=== PATIENT | female | born 1960 | race Caucasian/White ===

== ENCOUNTER 2021-10-03 22:41 | Emergency (ER) | payer OTHER ==
[2021-10-04] MEDS ORDERED: Promethazine HCl 25 MG/ML VIAL ONE (00:24)
[2021-10-04] MEDS ORDERED: Morphine 4 MG/ML VIAL ONE (00:24)
[2021-10-04 00:38] LABS: #Eosinphils 0.2 10x3/uL (0.0-0.5); #Monocytes 0.8 10x3/uL (0.0-1.1); #Neutrophils 5.3 10x3/uL (1.5-8.4); %Basophils 0.4 % (0.0-2.0); %Eosinophils 1.8 % (0.0-6.0); %Lymphocytes 29.2 % (18.0-47.0); %Neutrophils 59.3 % (40.0-75.0); Hemoglobin 14.2 g/dL (12.0-15.5); Mean Corpuscular HGB CONC 33.2 g/dL (32.0-36.0); Mean Corpuscular Volume 96.4 fl (81.6-98.3); Mean Platelet Volume 9.9 fl (7.4-10.4); Platelet Count 268 10x3/uL (150-450); RBC Distribution Width 12.9 % (11.5-14.5); Red Blood Cell (RBC) Count 4.44 10x6/uL (3.90-5.03)
[2021-10-04 00:39] LABS: Anion Gap 18 mmol/L (10-20); BUN (Urea Nitrogen) 19 mg/dL (9.8-20.1); Calc. Creatinine Clearance 0 mL/min (70-130); Calcium 9.9 mg/dL (7.8-10.44); Carbon Dioxide 23 mmol/L (23-31); Chloride 105 mmol/L (98-107); Glucose 104 mg/dL (80-115); Lipase 35 U/L (8-78); Potassium 4.2 mmol/L (3.5-5.1); Sodium 142 mmol/L (136-145)
[2021-10-04] MEDS ORDERED: metroNIDAZOLE 250 MG TAB ONE (01:11)
[2021-10-04] MEDS ORDERED: Ciprofloxacin 500 MG TAB ONE (01:11)
== END 2021-10-04 01:56 | disposition home or self-care (01) ==
LOC: CSHERS 22:41
DX: K57.92 Diverticulitis of intestine, part unspecified, without perforation or abscess without bleeding (principal)
CPT/HCPCS: 80048; 83605; 83690; 85025; 96374; 96375; J2270; J2550

== ENCOUNTER 2021-12-07 07:53 | Outpatient (CLI) | payer BC | END 2021-12-07 07:54 | disposition home or self-care (01) | LOC: CSHCT 07:53 | PROVIDERS: ATTEND Surgery | DX: K57.91 Diverticulosis of intestine, part unspecified, without perforation or abscess with bleeding (principal) | CPT/HCPCS: 74177 ==